=== PATIENT | male | born 1980 | race Caucasian/White ===

== ENCOUNTER 2021-10-09 08:48 | Day surgery (SDC) | payer BC ==
--- NOTE | 2021-10-09 08:26 | HP ---
DATE OF SURGERY: 10/09/2021 HISTORY OF PRESENT ILLNESS: The patient is a 41-year-old who has left lateral abdominal wall incarcerated ventral hernia and left inguinal hernia. I thought he would benefit from repair. He was originally scheduled at [facility] and now scheduled at [facility]. PAST MEDICAL HISTORY: He denies any chronic illnesses. PAST SURGICAL HISTORY: Two spine fusions in the past. Appendectomy. MEDICATIONS: None. ALLERGIES: NKDA. FAMILY HISTORY: Cancer. SOCIAL HISTORY: Smokeless tobacco. Alcohol - Drinks one per day. REVIEW OF SYSTEMS: Fourteen systems reviewed. No chest pain or palpitations. Other systems negative or noncontributory as above and per preadmission questionnaire. PHYSICAL EXAMINATION: GENERAL: No acute distress. HEENT: Sclerae nonicteric. NECK: No JVD. CHEST: Equal excursion, nonlabored breathing. CVS: Regular rate and rhythm. ABDOMEN: Soft. No peritoneal signs. EXTREMITIES: No significant edema. NEURO: Alert, oriented, moving extremities symmetrically. PSYCH: Appropriate mood and affect. IMPRESSION: Abdominal wall incarcerated ventral hernia relative to the left rectus muscle a small sac containing left inguinal hernia as well. It is felt he has incarcerated ventral hernia as well as left inguinal hernia. I feel he would benefit from repair laparoscopic possible open. General risk of bleeding or infection, risk of trocar injury or hernia, risk of bowel, bladder, blood vessel injury, risk of lesion or scar formation or obstruction, perioperative risk of bloating or ileus, risk of mesh infection possibly requiring removal. 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 Vascular or nerve issue or injury but not limited to, consent obtained, will proceed with laparoscopic repair of incarcerated ventral hernia with mesh as well as laparoscopic repair left inguinal hernia with mesh possible open as an outpatient.
--- NOTE | 2021-10-09 08:46 | HP ---
DATE OF SURGERY: 10/09/2021 HISTORY OF PRESENT ILLNESS: The patient is a 41-year-old has a ventral hernia left abdomen and also left inguinal area scheduled for repair in October. He had a CT scan showed abnormal change in his sigmoid colon, question of inflammatory changes. Colonoscopy is recommended to rule out other causes of his aches and pain in his left abdomen and his small hernias. PAST MEDICAL HISTORY: He denies any chronic illnesses. PAST SURGICAL HISTORY: Two spine fusions upper and lower. MEDICATIONS: ALLERGIES: NKDA. FAMILY HISTORY: Negative for colon cancer. SOCIAL HISTORY: Smokeless tobacco use. Does drink one alcohol drink a day denies abuse. REVIEW OF SYSTEMS: Fourteen systems reviewed. No chest pain or palpitations. Other systems negative or noncontributory as above and per preadmission questionnaire. PHYSICAL EXAMINATION: GENERAL: No acute distress. HEENT: Sclerae nonicteric. NECK: No JVD. CHEST: Equal excursion, nonlabored breathing. CVS: Regular rate and rhythm. ABDOMEN: Soft. No peritoneal signs. The patient had a ball left abdomen and smaller left inguinal hernia. EXTREMITIES: No significant edema. NEURO: Alert, oriented, moving extremities symmetrically. RECTAL: Deferred timed to endoscopy exam. PSYCH: Appropriate mood and affect. IMPRESSION: Incarcerated ventral hernia and also small fat filled left inguinal hernia. He also has got some abnormal thickening and inflammatory changes of his sigmoid colon. He is in need of colonoscopy to clear the colon first. Once that is okay at a later date will plan on laparoscopic repair of left inguinal hernia with mesh possible open as an outpatient. At this time we will proceed with colonoscopy for abdominal pain and some minimal thickening of colon on CT scan.
[~2021-10-09 08:48] MED LIST: Lactated Ringers 1,000 ML IV SCH
[2021-10-09] MEDS ORDERED: Lactated Ringers 1,000 ML IV ONE (09:28)
[2021-10-09] MEDS ORDERED: DIPRIVAN 200 MG/20 ML IV ONE ×2 (11:15→11:25)
[2021-10-09] MEDS ORDERED: Versed 2 MG/2 ML Injection ONE (11:15)
[2021-10-09 12:36] VITALS: BP 122/77; PULSE 65; O2SAT 97
--- NOTE | 2021-10-10 10:38 | OP ---
SURGERY DATE/TIME: 10/09/2021 1119 PREOPERATIVE DIAGNOSIS: Abnormal CT scan thickening, question diverticular disease, history of left-sided abdominal pain. History of ventral hernia. In need of colonoscopy prior to proceeding with ventral hernia repair down the road. POSTOPERATIVE DIAGNOSES: 1) Diverticulosis. 2) Proximal sigmoid colon polyp. 3) ASA Class III. 4) Withdrawal time approximately eight minutes. 5) Prep overall fair. PROCEDURES: 1) Colonoscopy to cecum. 2) Hot snare polypectomy proximal sigmoid colon polyp. SURGEON: Dr. Adrian Ellison. ANESTHESIA: MAC. ESTIMATED BLOOD LOSS: Minimal. INDICATIONS: As noted above. Risks and benefits explained in detail but not limited to and consent obtained. DESCRIPTION OF PROCEDURE AND FINDINGS: The patient is taken to the endoscopy room. MAC anesthesia induced. After official time out and no disagreement with planned procedure, digital rectal exam did not reveal any rectal masses. Video colonoscope inserted and passed up through the slightly tortuous sigmoid, descending, transverse and ascending colon around to the cecum. Appendiceal orifice and valve well visualized and photo documented. The scope was carefully withdrawn over the next eight minutes. No signs of any large polyps, masses or obstructing lesions. Liquidy stool just limited the exam slightly. He did have mild to moderate diverticulosis in the left colon. He did have one polyp that was about 3 mm in size removed with hot snare polypectomy with very minimal brief bursts of cautery elevating well away from the bowel wall. Appeared to have adequate hemostasis. Base appeared viable. Specimen was retrieved per the staff. Otherwise, diverticulosis as mentioned above. There were no signs of any large polyps, masses or obstructing lesions. No signs of any inflammatory reaction. The patient tolerated the procedure well. There were no immediate complications. There was no family to discuss the findings with out in the waiting area. If they return later I can be paged.
== END 2021-10-09 12:30 | disposition home or self-care (01) ==
LOC: SDC 08:48
PROVIDERS: ATTEND Surgery
DX: K57.30 Diverticulosis of large intestine without perforation or abscess without bleeding (principal); R93.3 Abnormal findings on diagnostic imaging of other parts of digestive tract; Z87.19 Personal history of other diseases of the digestive system; K63.5 Polyp of colon
CPT/HCPCS: J2250; J2704

== ENCOUNTER 2021-10-23 10:45 | Day surgery (SDC) | payer BC ==
--- NOTE | 2021-10-23 09:06 | HP ---
DATE OF SURGERY: 10/23/2021 HISTORY OF PRESENT ILLNESS: The patient is a 41-year-old with left abdominal lump protrusion. CT scan showed sac containing hernia left rectus muscle corresponding to the area marked on the CT scan as well as small sac containing left inguinal hernia. He had some inflammatory changes in the colon. In the past he had undergone colonoscopy finding of some diverticulosis and a small polyp was removed with a snare. He is in need of hernia repair. PAST MEDICAL HISTORY: He denied any other chronic health issues. PAST SURGICAL HISTORY: He had two spine fusions upper and lower. Also appendectomy and colonoscopy in the past. MEDICATIONS: He denied medications on a regular basis. ALLERGIES: NKDA. FAMILY HISTORY: Cancer. SOCIAL HISTORY: Smokeless tobacco. Alcohol use one drink per day. REVIEW OF SYSTEMS: Fourteen systems reviewed. No chest pain or palpitations. Other systems negative or noncontributory as above and per preadmission questionnaire. PHYSICAL EXAMINATION: GENERAL: No acute distress. HEENT: Sclerae nonicteric. NECK: No JVD. CHEST: Equal excursion, nonlabored breathing. CVS: Regular rate and rhythm. ABDOMEN: Soft, some hernia on the left lower quadrant whether this is a Spigelian type hernia is unclear. He has slight weakness in the left inguinal area. Otherwise no peritoneal signs. EXTREMITIES: No significant edema. NEURO: Alert, oriented, moving extremities symmetrically. PSYCH: Appropriate mood and affect. IMPRESSION: Left lower abdominal ventral hernia incarcerated with fat in need of repair with mesh as well as possibly small left inguinal hernia with some fat, need repair of both of these. We discussed options such as minimally invasive such as laparoscopic, possible open with mesh. General risk of bleeding or infection, risk of trocar injury or hernia, risk of bowel, bladder, blood vessel issues or injury, risk of adhesion, scar formation or obstruction. Perioperative risk of aches, pains, burning or numbness possible senior living, risk of perioperative risk of ileus or bloating, risk of hernia recurrence, risk of mesh infection possibly requiring removal, risk of hematoma or seroma formation, risk of black, blue and bruising. Risk of urinary retention. Remote risk of vas, vascular, ureter or bladder issues or injury, general risk of anesthesia, deep vein thrombosis, pulmonary embolism, pneumonia. Risks of aches, pains, burning lower abdomen, groin, thigh or scrotal area possible senior living or chronic in nature up to 10-12%. Overall risk of hernia recurrence as well as possibility he may need if not safely able to repair laparoscopically may need to convert to an open repair on one or both of these hernias. He is agreeable to the plan, will proceed with laparoscopic repair of incarcerated ventral hernia with mesh as well as laparoscopic repair of additional left inguinal hernia separate site hernia with mesh possible open. He understands remote risk of mesh fracture or failure possibly requiring issues of viscera or other structures possibly requiring open procedure, ongoing morbidity. Consent obtained. Will proceed as an outpatient when OR time available.
[~2021-10-23 10:45] MED LIST changes: +Lactated Ringers 1,000 ML IV ONE; -Lactated Ringers 1,000 ML IV SCH; +Sensorcaine 0.25% 10 ML ONE
[2021-10-23] MEDS ORDERED: EXPAREL 133 MG/10 ML VIAL IJ ONE (10:46)
[2021-10-23] MEDS ORDERED: Decadron 4 MG INJ IV ONE (10:46)
[2021-10-23] MEDS ORDERED: CEFAZOLIN 2 GM-D5W BAG** 2 GM/50 ML ML IV SCH (11:00)
[2021-10-23] MEDS ORDERED: Lactated Ringers 1,000 ML IV SCH (11:00)
[2021-10-23] MEDS ORDERED: CEFAZOLIN 2 GM-D5W BAG** 2 GM/50 ML ML IV ONE (11:33)
[2021-10-23] MEDS ORDERED: Lactated Ringers 1,000 ML IV ONE (11:33)
[2021-10-23] MEDS ORDERED: DIPRIVAN 200 MG/20 ML IV ONE (11:43)
[2021-10-23] MEDS ORDERED: Zemuron 100 MG/10 ML ONE (11:44)
[2021-10-23] MEDS ORDERED: Decadron 4 MG INJ ONE (11:44)
[2021-10-23] MEDS ORDERED: Quelicin Fliptop 200 MG/10 ML ONE (11:44)
[2021-10-23] MEDS ORDERED: BRIDION 200MG/2ML IV ONE (11:44)
[2021-10-23] MEDS ORDERED: Zofran 4 MG/2 ML VIAL ONE (11:44)
[2021-10-23] MEDS ORDERED: Xylocaine-Mpf 2% 5 Ml Vial ONE (11:44)
[2021-10-23] MEDS ORDERED: Versed 2 MG/2 ML Injection ONE (11:48)
[2021-10-23] MEDS ORDERED: SUBLIMAZE 100 MCG/2 ML ONE ×3 (11:49→16:01)
[2021-10-23] MEDS ORDERED: Pre-Attached Lta Kit TP ONE (11:53)
[2021-10-23] MEDS ORDERED: OFIRMEV 100 ML IV ONE (11:53)
[2021-10-23] MEDS ORDERED: Sensorcaine 0.25% 10 ML ONE (14:01)
[2021-10-23] MEDS ORDERED: Hydromorphone 1 mg/ml Injection ONE (16:01)
[2021-10-23 17:34] VITALS: O2SAT 95
[2021-10-23 17:37] VITALS: BP 120/82; PULSE 72
--- NOTE | 2021-10-24 08:17 | OP ---
SURGERY DATE/TIME: 10/23/2021 1245 PREOPERATIVE DIAGNOSES: 1) Incarcerated left lateral abdominal wall hernia. 2) Left inguinal hernia POSTOPERATIVE DIAGNOSES: 1) Incarcerated left lateral abdominal wall hernia. 2) Left inguinal hernia PROCEDURES: 1) Laparoscopic repair of far left lateral incarcerated ventral hernia with mesh. 2) Laparoscopic repair of left inguinal hernia with separate piece of mesh. SURGEON: Dr. Adrian Ellison. AGED OR DISABLED CARER: Emperatriz Watson, Medical Student III. ANESTHESIA: General. ESTIMATED BLOOD LOSS: Minimal. INDICATIONS: As noted above. Risks and benefits explained in detail and not limited to and consent obtained. DESCRIPTION OF PROCEDURE AND FINDINGS: The patient is taken to the operating room. General anesthesia was induced. The site was marked preoperatively. She was prepped and draped in usual sterile fashion. After official time out and no disagreement with planned procedure, a transverse incision made supraumbilical area. Fascia grasped and pulled up. Veress needle inserted and tested with saline. Pneumoperitoneum accomplished insufflating opening pressure 0-15. A mid right abdomen 5 mm port and camera and mid left abdomen 5 mm port and later a lower midline 5 mm ports were placed. Peritoneum entered and incised sharply with LigaSure device dissecting down staying in the preperitoneal space directly against the rectus down to the pubis and Miller's ligament was accomplished dissecting off lateral. It should be noted it is far left lateral incarcerated ventral hernia with incarcerated omentum. The omentum was slowly and carefully reduced downward this took some time still quite well and was finally reduced back into the abdomen and this finally allowed to access the peritoneum further in the visceral peritoneal plane extra-peritoneal space leaving the 5-0 fat pad and nerves on the lateral side wall. Once this was accomplished, dissection was carried reducing a cord lipoma back up into the abdomen with a LigaSure device it was felt to go ahead and just remove this as we are going to need to place a larger port to repair the incarcerated ventral hernia site with a piece of mesh. This is carefully and later in the case was removed. The cord lipoma was passed off. Otherwise, the patient's main component was an indirect hernia. The hernia sac was carefully mobilized upwards up into the peritoneum carefully dissected off where the vas crosses over the iliac vein. Once dissection was cephalad enough there was no tension in the peritoneum when it was pulled on. The femoral direct and indirect spaces had all been exposed. It was felt time to put mesh in. It was elected to use the large 3D Max for left hernia carefully passed down. The mesh was carefully placed. A small tack was placed to manipulate the mesh carefully put down with good overlap of the direct femoral and indirect spaces. Two tacks were placed were placed medially through the pubis and Miller's ligament area with the crease of the 3D Max over the iliac vessels. Otherwise, mesh is covering all of the spaces at this point. As the far left lateral hernia was cephalad and more lateral than the mesh, it was felt that this needed to be repaired with a separate piece of mesh. It had been measured earlier. It was felt that size [address] mesh most appropriate size. After placing some #1 Vicryl stay sutures to bring the fascia itself back together these were tagged with 12 port having been placed through there. The size 6 mesh is carefully rolled and placed through the port this is pulled up with a strap. A couple tacks further lateral were placed with AbsorbaTack SorbaFix temporarily with some capture tacks used in four quadrants this is done after tying #1 Vicryl bringing the true fascia back. This is all done with the pressure having been down to 8. Another couple tacks were placed in the fascia on either side of the intra-epigastric vessel area. The top edge of the 3D Max inguinal hernia mesh. Once this was accomplished, the peritoneum was then tacked back over as well as cephalad with the 3D Max mesh. It was tacked up over the abdominal wall with some SorbaFix tacks. Otherwise, pneumoperitoneum decompressed. He had some subcu that seemed to infiltrate the scrotum/base of the penis area this is carefully mobilized out and the family was notified of this and should resolve over time the black, blue and bruising. Otherwise, pneumoperitoneum decompressed. Ports removed. Skin incisions closed with 4-0 Vicryl. 0.25% Marcaine local injected. Anesthesia applying tap blocks. The patient tolerated the procedure well. There were no immediate complications. Findings discussed with the family out in the waiting area. It was a more difficult dissection given his two separate hernias on that side particularly the lateral aspect of the more cephalad ventral hernia.
== END 2021-10-23 17:30 | disposition home or self-care (01) ==
LOC: SDC 10:45
PROVIDERS: ATTEND Surgery
DX: K43.6 Other and unspecified ventral hernia with obstruction, without gangrene (principal); K40.90 Unilateral inguinal hernia, without obstruction or gangrene, not specified as recurrent
CPT/HCPCS: 49650; 49653; 64488; 76937; 87086; C1781; 76942; J0330; J0690; J1100; J1170; J2250; J2405; J2704; J3010; L0625